=== PATIENT | female | born 1955 | race Caucasian/White ===

== ENCOUNTER → 2021-11-27 | Day surgery (SDC) | payer OTHER | END | disposition home or self-care (01) | LOC: JRADUS-SUR 11:35 | PROVIDERS: ATTEND Internal Medicine | PROC: 0H9T3ZX Drainage of Right Breast, Percutaneous Approach, Diagnostic (ICD-10-PCS; principal; 2021-11-27) | DX: D24.1 Benign neoplasm of right breast (principal) | CPT/HCPCS: 19083; 77065-TC; 87899; 88305-TC; A4648 ==

== ENCOUNTER 2022-01-28 04:46 | Day surgery (SDC) | payer OTHER ==
[2022-01-24 14:54] VITALS: BMI 22.9
[2022-01-28 09:37] VITALS: TEMP 99
[2022-01-28 09:46] VITALS: PULSE 56
[2022-01-28 10:10] VITALS: BP 150/80
== END 2022-01-28 10:00 | disposition home or self-care (01) ==
LOC: JASU-ENDO 04:46
PROVIDERS: ATTEND Internal Medicine Gastroenterology
PROC: 0DJD8ZZ Inspection of Lower Intestinal Tract, Via Natural or Artificial Opening Endoscopic (ICD-10-PCS; principal; 2022-01-28 09:30)
DX: Z12.11 Encounter for screening for malignant neoplasm of colon (principal); K57.30 Diverticulosis of large intestine without perforation or abscess without bleeding; K64.8 Other hemorrhoids

== ENCOUNTER 2024-01-11 10:28 | Emergency (ER) | payer OTHER ==
[2024-01-11] MEDS ORDERED: IBUPROFEN 400 MG TABLET (FP) PO ONE (10:52)
[2024-01-11 10:53] VITALS: BP 160/71; PULSE 73; RESP 20; TEMP 98.4; BMI 21.6
[2024-01-11] MEDS: IBUPROFEN 400 MG TABLET (FP) PO ONE (10:54)
== END 2024-01-11 12:26 | disposition home or self-care (01) ==
LOC: FER 10:28
DX: S96.911A Strain of unspecified muscle and tendon at ankle and foot level, right foot, initial encounter (principal); X50.1XXA Overexertion from prolonged static or awkward postures, initial encounter
CPT/HCPCS: 73630-TC-RT-FY; 93971-TC; 99284-25